=== PATIENT | female | born 1980 | race Caucasian/White ===

== ENCOUNTER 2019-09-11 23:46 | Emergency (ER) | payer MEDICAID ==
[~2019-09-11] VITALS: Ht 157.5 cm; Wt 83.9 kg
[2019-09-11 23:48] VITALS: BP 169/103
[2019-09-12] MEDS ORDERED: CLOT45CR8 TOP (00:34)
[2019-09-12] MEDS ORDERED: CEPH250T PO (00:34)
== END 2019-09-12 00:47 | disposition home or self-care (01) ==
LOC: ER 23:47
DX: L57.0 Actinic keratosis (principal); B35.0 Tinea barbae and tinea capitis; M79.671 Pain in right foot; Z79.2 Long term (current) use of antibiotics
CPT/HCPCS: 99283